=== PATIENT | male | born 1970 | race Caucasian/White ===

== ENCOUNTER 2017-08-30 18:30 | Emergency (ER) | payer MEDICARE, BC ==
[~2017-08-30] VITALS: Ht 180.3 cm; Wt 112.5 kg
[~2017-08-30 18:30] MED LIST: ADDERALL 30 MG30 MG PO; ALEVE220 MG PO; ASPIR 8181 MG PO; BRINTELLIX20 MG PO; CHLORPROMAZINE100 MG PO; CLONAZEPAM 1 MG1 M1 PO; COPAXONE20 M1 SQ; COPAXONE40 MG/1 ML INJECTION; COREG25 MG PO; CYMBALTA30 MG PO; DIAZEPAM 5 MG5 MG; HYTRIN10 MG PO; LASIX 20 MG TAB20 MG PO; LEVITRA20 MG PO; LIORESAL 10 MG10 MG PO; LISINOPRIL10 MG PO; LUNESTA3 MG PO; NEURONTIN600 MG PO; NORVASC5 MG PO; OXYBUTYNIN 5 MG5 M2 PO; PROTONIX40 M1 PO; REMERON15 MG PO; REQUIP XL4 MG PO; SUMATRIPTA6 MG/0.51 INJECTION; TESTOPEL75 MG IMPLANT; TRICOR145 MG PO; VALIUM5 MG PO; VENTOLIN HFA 1818 GM INH; VIAGRA100 MG PO; WELLBUTRIN XL300 MG PO; XANAX1 MG PO; ZYRTEC10 M2 PO; [UNRECOGNIZED DRUG - REMARK]
[2017-08-30] MEDS ORDERED: HYDROCHLOROTH12.5 M1 PO (18:45)
[2017-08-30] MEDS ORDERED: CALCIUM + D SO1 EACH PO (18:45)
[2017-08-30] MEDS ORDERED: CHLORTHALIDONE25 MG PO (18:45)
[2017-08-30] MEDS ORDERED: POTASSIUM20 PO (18:46)
[2017-08-30] MEDS ORDERED: UNICOMPLEX M TA1 TA1 PO (18:46)
[2017-08-30] MEDS ORDERED: XALATAN2.5 ML OPHTHALMIC (18:46)
[2017-08-30] MEDS ORDERED: BRINTELLIX5 MG PO (18:46)
[2017-08-30] MEDS ORDERED: ATROVENT HFA14 GM INH (18:46)
[2017-08-30 19:12] LABS: ABSOLUTE BASOPHILS 0.1 thou/uL (0.0-0.2); ABSOLUTE EOSINOPHILS 0.4 thou/uL (0.0-0.7); ABSOLUTE LYMPHOCYTES 2.3 thou/uL (0.8-5.3); ABSOLUTE MONOCYTES 0.8 thou/uL (0.0-1.2); ABSOLUTE NEUTROPHILS 4.8 thou/uL (1.6-8.1); EOSINOPHILS 4.8 %; HEMATOCRIT 40.9 % (42.0-52.0); HEMOGLOBIN 13.7 gm/dL (14.0-18.0); LYMPHOCYTES 27.4 %; MCH 28.5 pg (26.0-34.0); MCHC 33.6 g/dL (28.0-37.0); MCV 84.8 fL (80.0-100.0); MONOCYTES 9.5 %; MPV 7.6 fl. (7.2-11.1); NUCLEATED RBCS 0 /100WBC; PLATELET COUNT* 292 thou/uL (150-400); POLYS 57.3 %; RBC 4.82 mil/uL (4.50-6.00); RDW-CV 15.7 % (10.5-14.5); WBC 8.5 thou/uL (4.0-11.0)
[2017-08-30 19:19] LABS: CREATININE 1.1 mg/dL (0.6-1.3)
[2017-08-30 19:20] LABS: POTASSIUM 2.9 mmol/L (3.5-5.1)
[2017-08-30 19:35] LABS: ALBUMIN 3.9 g/dL (3.4-5.0); TOTAL BILIRUBIN 0.4 mg/dL (<0.1-1.0); TOTAL PROTEIN 7.6 g/dL (6.4-8.2)
[2017-08-30 21:10] VITALS: BP 129/75
== END 2017-08-30 21:10 | disposition home or self-care (01) ==
LOC: M.ERS 18:30
PROVIDERS: Physician Assistant Surgical
DX: R60.9 Edema, unspecified (principal); E87.6 Hypokalemia; I10 Essential (primary) hypertension; Z88.5 Allergy status to narcotic agent; Z88.6 Allergy status to analgesic agent; Z90.49 Acquired absence of other specified parts of digestive tract

== ENCOUNTER 2018-04-13 17:13 | Emergency (ER) | payer MEDICARE, BC ==
[~2018-04-13] VITALS: Ht 180.3 cm; Wt 105.7 kg
[~2018-04-13 17:13] MED LIST changes: +ATROVENT HFA14 GM INH; +BRINTELLIX5 MG PO; +CALCIUM + D SO1 EACH PO; +CHLORTHALIDONE25 MG PO; +HYDROCHLOROTH12.5 M1 PO; +POTASSIUM20 PO; +UNICOMPLEX M TA1 TA1 PO; +XALATAN2.5 ML OPHTHALMIC
[2018-04-13 17:17] VITALS: BP 130/93
== END 2018-04-13 19:53 | disposition home or self-care (01) ==
LOC: M.ERS 17:13
DX: G35 Multiple sclerosis (principal); I10 Essential (primary) hypertension; J45.909 Unspecified asthma, uncomplicated; Z90.49 Acquired absence of other specified parts of digestive tract; Z88.5 Allergy status to narcotic agent

== ENCOUNTER → 2018-04-23 | Outpatient (CLI) | payer MEDICARE, BC ==
[2018-04-23 11:42] VITALS: BP 137/87
--- NOTE | 2018-04-23 14:44 | NUR ---
ARRIVED AMBULATORY. RIGHT ARM IV INTACT AND PATENT. INFUSION COMPLETED AND TOLERATED WELL. IV REMOVED WITH OUT DFIICULTY. DENEIS NEEDS AT DISCHARGE.
== END ==
LOC: M.INFUS 05:37
DX: G35 Multiple sclerosis (principal)

== ENCOUNTER 2018-11-27 09:59 | Emergency (ER) | payer MEDICARE, BC ==
[~2018-11-27] VITALS: Ht 180.3 cm; Wt 102.1 kg
[2018-11-27] MEDS ORDERED: DOXEPIN HCL100 MG PO (10:14)
[2018-11-27] MEDS ORDERED: OMEGA-31000 M1 PO (10:18)
[2018-11-27] MEDS ORDERED: PREVIDENT100 ML PO (10:19)
[2018-11-27] MEDS ORDERED: VITAMIN B-12500 MCG PO (10:20)
[2018-11-27] MEDS ORDERED: VITAMIN D2000 UNIT PO (10:20)
[2018-11-27] MEDS ORDERED: FLOMAX0.4 MG PO (10:21)
[2018-11-27] MEDS ORDERED: PERIDEX15 ML PO (10:21)
[2018-11-27 10:38] LABS: URINE BILIRUBIN NEGATIVE (Negative); URINE BLOOD NEGATIVE (Negative); URINE CLARITY CLEAR; URINE COLOR YELLOW; URINE GLUCOSE-RANDOM NEGATIVE (Negative); URINE KETONES NEGATIVE (Negative); URINE LEUKOCYTES-REFLEX NEGATIVE (Negative); URINE NITRITE-REFLEX NEGATIVE (Negative); URINE PROTEIN NEGATIVE (Negative); URINE UROBILINOGEN 0.2 E.U./dl (0.2-1.0)
[2018-11-27 10:48] LABS: ABSOLUTE BASOPHILS 0.1 thou/uL (0.0-0.2); ABSOLUTE EOSINOPHILS 0.3 thou/uL (0.0-0.7); ABSOLUTE LYMPHOCYTES 1.9 thou/uL (0.8-5.3); ABSOLUTE MONOCYTES 0.7 thou/uL (0.0-1.2); ABSOLUTE NEUTROPHILS 4.1 thou/uL (1.6-8.1); HEMATOCRIT 44.8 % (42.0-52.0); HEMOGLOBIN 15.3 gm/dL (14.0-18.0); LYMPHOCYTES 27.3 %; MCH 28.9 pg (26.0-34.0); MCHC 34.2 g/dL (28.0-37.0); MCV 84.3 fL (80.0-100.0); MONOCYTES 9.5 %; MPV 7.8 fl. (7.2-11.1); NUCLEATED RBCS 0 /100WBC; PLATELET COUNT* 296 thou/uL (150-400); POLYS 58.2 %; RBC 5.31 mil/uL (4.50-6.00); RDW-CV 15.8 % (10.5-14.5)
[2018-11-27 10:55] LABS: ANION GAP 8 mmol/L (7-16); BUN 14 mg/dL (7-18); CALCIUM 8.7 mg/dL (8.5-10.1); CHLORIDE 103 mmol/L (98-107); CO2 29 mmol/L (21-32); GLUCOSE 127 mg/dL (70-99); POTASSIUM 3.4 mmol/L (3.5-5.1); SODIUM 140 mmol/L (136-145)
[2018-11-27 11:06] LABS: ALKALINE PHOSPHATASE 82 U/L (46-116); NT-PRO BRAIN NAT PEPTIDE 25 pg/mL (<300); SGOT 34 U/L (15-37); SGPT 62 U/L (30-65); TOTAL BILIRUBIN 0.3 mg/dL (<0.1-1.0); TOTAL PROTEIN 7.6 g/dL (6.4-8.2); TROPONIN-I LEVEL <0.06 ng/mL (<0.06)
[2018-11-27 11:54] VITALS: BP 138/90
--- NOTE | 2018-11-27 15:11 | EKG ---
[place] [address] ELECTROCARDIOGRAM REPORT Name: BECCA ISLAS JR Room: 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
== END 2018-11-27 11:53 | disposition home or self-care (01) ==
LOC: M.ERS 09:59
PROVIDERS: Physician Assistant
DX: R60.0 Localized edema (principal); G89.29 Other chronic pain; G70.00 Myasthenia gravis without (acute) exacerbation; I10 Essential (primary) hypertension; J45.909 Unspecified asthma, uncomplicated; Z90.49 Acquired absence of other specified parts of digestive tract; Z86.011 Personal history of benign neoplasm of the brain; Z88.5 Allergy status to narcotic agent; Z88.4 Allergy status to anesthetic agent

== ENCOUNTER 2019-05-04 11:53 | Emergency (ER) | payer MEDICARE, BC ==
[~2019-05-04] VITALS: Ht 180.3 cm; Wt 113.4 kg
[~2019-05-04 11:53] MED LIST changes: +DOXEPIN HCL100 MG PO; +FLOMAX0.4 MG PO; +OMEGA-31000 M1 PO; +PERIDEX15 ML PO; +PREVIDENT100 ML PO; +VITAMIN B-12500 MCG PO; +VITAMIN D2000 UNIT PO
[2019-05-04 12:35] LABS: INFLUENZA A ANTIGEN Negative (Negative); INFLUENZA B ANTIGEN Negative (Negative)
[2019-05-04 13:07] LABS: APTT 30.3 Seconds (25.0-31.3); CALCIUM 9.2 mg/dL (8.5-10.1); CREATININE 1.2 mg/dL (0.6-1.3); POTASSIUM 3.1 mmol/L (3.5-5.1); PROTIME 10.7 Seconds (9.20-11.50)
[2019-05-04 13:17] LABS: ALBUMIN 3.6 g/dL (3.4-5.0); MAGNESIUM 1.7 mg/dL (1.8-2.4); TOTAL BILIRUBIN 0.5 mg/dL (<0.1-1.0); TOTAL PROTEIN 7.8 g/dL (6.4-8.2)
[2019-05-04 13:20] LABS: PLATELET ESTIMATE ADEQUATE
[2019-05-04 13:37] LABS: MCH 29.1 pg (26.0-34.0); MCHC 34.9 g/dL (28.0-37.0); MCV 83.5 fL (80.0-100.0); MPV 8.1 fl. (7.2-11.1); PLATELET COUNT* 327 thou/uL (150-400); RBC 5.51 mil/uL (4.50-6.00); WBC 9.5 thou/uL (4.0-11.0)
[2019-05-04] MEDS ORDERED: PREDNISONE 20 M20 M1 PO (13:41)
[2019-05-04 13:45] LABS: ABSOLUTE EOSINOPHILS 0.1 thou/uL (0.0-0.7); ABSOLUTE LYMPHOCYTES 2.1 thou/uL (0.8-5.3); ABSOLUTE MONOCYTES 0.8 thou/uL (0.0-1.2); ABSOLUTE NEUTROPHILS 6.6 thou/uL (1.6-8.1)
[2019-05-04 14:04] VITALS: BP 127/80
--- NOTE | 2019-05-05 10:27 | EKG ---
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1970 Requested By: Nick Teresa Order Number: [id number] MD: To Mac Measurements Intervals [place] Rate: 76 P: 44 OR: 203 QRS: -2 QRSD: 118 T: 68 QT: 391 QTc: 440 Interpretive Statements Sinus rhythm Borderline prolonged OR interval Nonspecific intraventricular conduction delay Compared to ECG 11/27/2018 10:24:27 no change Electronically Signed On 05-05-2019 10:26:28 [employer]ESPERSON TERRAZZO TILES by To Mac [email or web address] <ELECTRONICALLY SIGNED> By: To Mac MD, [facility] 05/05/19 1026 1309 1309 To Mac MD, [facility] /EPI
== END 2019-05-04 14:04 | disposition home or self-care (01) ==
LOC: M.ERS 11:53
PROVIDERS: Family Medicine
DX: J45.901 Unspecified asthma with (acute) exacerbation (principal); I10 Essential (primary) hypertension; J45.909 Unspecified asthma, uncomplicated; Z90.49 Acquired absence of other specified parts of digestive tract; Z88.6 Allergy status to analgesic agent; Z88.8 Allergy status to other drugs, medicaments and biological substances

== ENCOUNTER → 2019-09-26 | Outpatient (CLI) | payer MEDICARE, BC ==
[~2019-09-26] MED LIST changes: +PREDNISONE 20 M20 M1 PO
== END ==
LOC: M.CT 11:00
PROVIDERS: ATTEND Family Medicine
DX: R79.89 Other specified abnormal findings of blood chemistry (principal); I26.99 Other pulmonary embolism without acute cor pulmonale

== ENCOUNTER → 2020-01-09 | Outpatient (CLI) | payer MEDICARE, BC | LOC: M.ULTRA 09:30 | PROVIDERS: ATTEND Internal Medicine Gastroenterology | DX: K76.0 Fatty (change of) liver, not elsewhere classified (principal) ==